=== PATIENT | male | born 1960 | race Caucasian/White ===

== ENCOUNTER 2017-04-17 10:37 | Observation (INO) ==
[2017-04-17] MEDS ORDERED: Aspirin 81 MG TAB.CHEW PO ONE (10:39)
--- NOTE | 2017-04-17 10:43 | Emergency Department Note ---
Disposition Clinical Impression: Chest pain Qualifiers: Chest pain type: unspecified Qualified Code(s): R07.9 - Chest pain, unspecified Disposition: Admitted As Inpatient Condition: Good Referrals: Juan Gilbert DO [Primary Care Provider] - Forms: ED Satisfaction Letter Time of Disposition: 12:05 Chest Pain HPI - General Chief Complaint: ED Chest Pain Stated Complaint: chest pain Time Seen by Provider: 04/17/17 10:38 Source: patient, family Mode of arrival: ambulatory Limitations: no limitations Vital Signs Reviewed: Yes Nursing Notes Reviewed: Yes - History of Present Illness HPI Narrative: 56-year-old male who comes in with crushing substernal chest pain that began 45 minutes prior to arrival. Patient has no history of cardiac pathology. He describes it as a his chest caving in. Patient's risk factors include family history. States he thinks his cholesterol a be high. Patient denies diabetes, hypertension. Pt complaint: chest pain Onset (ago): minute(s) Duration: constant (5) Onset: during rest Pain Location: substernal, left chest Severity: moderate, severe (Initially severe now 2 out of 10) Severity scale (1-10): 2 Quality: tightness, aching, heaviness Pain Radiation: none Improves with: other Worsens with: nothing (Time) Treatments prior to arrival chest pain: none - Related Data Allergies Allergy/AdvReac Type Severity Reaction Status Date / Time methocarbamol [From Robaxin] Allergy Dizziness Verified 01/26/16 10:39 All systems ED: reviewed and negative except as stated. Constitutional: Denies: fever, chills, weakness, weight change Eyes: Denies: eye pain, eye discharge, vision change ENT ED: Denies: ear pain, throat pain, dental pain, hearing loss, epistaxis, congestion, dysphagia Cardiovascular: Reports: chest pain. Denies: palpitations, dyspnea on exertion , edema, syncope Respiratory: Denies: cough, dyspnea, wheezes, hemoptysis, stridor Gastrointestinal: Denies: abdominal pain, nausea, vomiting, diarrhea, constipation, hematemesis, melena, hematochezia Genitourinary: Denies: urgency, dysuria, frequency, hematuria Musculoskeletal: Denies: back pain, neck pain, arthralgia, myalgia Integumentary: Denies: rash, abrasion, lesions Neurological: Denies: headache, weakness, numbness, paresthesias, confusion, abnormal gait, vertigo Psychiatric: Denies: anxiety, depression, suicidal thoughts, homicidal thoughts , auditory hallucinations, visual hallucinations Endocrine: Denies: fatigue Hematological/Lymphatic: Denies: easy bleeding, easy bruising Allergic/Immunologic: Denies: facial swelling, urticaria Chest Pain PMH - Past Medical History Medical history: Reports: no medical history Surgical history: Reports: other (Bilateral mastectomy) Psychiatric history: Reports: no psych history - Social History Smoking Status: Current every day smoker Alcohol use: Reports: occasionally Physical Exam - General Limitations: no limitations General appearance: alert, in no apparent distress - Head Head exam: atraumatic, normocephalic, normal inspection - Eye Eye exam: Present: normal appearance - ENT ENT exam: normal exam, normal oropharynx, mucous membranes moist - Neck Neck exam: Present: normal inspection, full ROM, trachea midline - Chest Chest inspection: Present: normal inspection, symmetric chest wall rise - Respiratory Respiratory exam: Present: normal lung sounds bilaterally - Cardiovascular Cardiovascular exam: Present: regular rate, normal rhythm, normal heart sounds - Abdominal Exam Abdominal exam: Present: soft, Non-Tender. Absent: tenderness, distention, guarding, rebound, rigidity - Extremities Exam Extremities exam: Present: normal inspection, full ROM. Absent: tenderness, pedal edema - Expanded Lower Extremity Exam Neurovascular/Tendon exam: Absent: motor deficit, sensory deficit, tendon deficit Gait: observed and normal - Back Exam Back exam: Present: normal inspection, full ROM. Absent: tenderness - Neurological Exam Neurological exam: Present: alert, oriented X3 - Psychiatric Psychiatric exam: Present: normal affect, normal mood - Skin Skin exam: Present: warm, dry, intact, normal color Course - Reevaluation(s) Reevaluation #1: Repeat EKG done at 10:54 AM no acute changes compared to previous. No acute abnormality Time: 10:58 Reevaluation #2: 56-year-old with risk factors who comes in complaining crushing chest pain lasted for about 2030 minutes. Said no recent cardiac workup. The patient will be admitted for evaluation and treatment. Time: 12:04 - Consultations Consultation #1: Discussed with Dr. Denise, admit Time: 12:04 Vital Signs Temperature 97.8 F 04/17/17 10:39 Pulse Rate 61 04/17/17 10:39 Respiratory Rate 16 04/17/17 10:39 Blood Pressure 143/97 04/17/17 10:39 O2 Sat by Pulse Oximetry 98 04/17/17 10:39 Temperature 97.8 F 04/17/17 10:39 Pulse Rate 61 04/17/17 10:39 Respiratory Rate 16 04/17/17 10:39 Blood Pressure 143/97 04/17/17 10:39 O2 Sat by Pulse Oximetry 98 04/17/17 10:39 Oxygen Delivery Oxygen Delivery Room Air Chest Pain - Lab Data Result diagrams: 04/17/17 11:01 04/17/17 11:01 Lab Results 04/17/17 04/17/17 04/17/17 Range/Units 11:01 11:01 11:01 WBC 7.6 (4.3-11.1) K/mcL RBC 4.76 (4.19-5.50) M/mcL Hgb 16.0 (12.9-16.9) g/dL Hct 45.1 (37.5-50.1) % MCV 94.7 (83.0-100.0) fL MCH 33.6 H (28.0-33.3) pg MCHC 35.5 (31.6-35.5) g/dL RDW 12.1 (11.5-14.5) % Plt Count 193 (140-400) K/mcL MPV 11.6 (9.4-12.4) fL Immature Gran % 0.7 (0-4) % Seg Neutrophils % 60.4 % Lymphocytes % 23.6 % Monocytes % 8.0 % Eosinophils % 6.3 % Basophils % 1.0 % Neutrophils # 4.6 (1.6-8.9) K/mcL Lymphocytes # 1.8 (0.6-4.6) K/mcL Monocytes # 0.6 (0.0-1.3) K/mcL Eosinophils # 0.5 (0.0-0.6) K/mcL Basophils # 0.1 (0.0-0.2) K/mcL PT 10.3 (9.4-12.1) Seconds INR 1.0 APTT 30.7 (26.0-36.0) Seconds Sodium (136-145) mEq/L Potassium (3.5-4.5) mEq/L Chloride (98-109) mEq/L Carbon Dioxide (19-29) mEq/L BUN (8-26) mg/dL Creatinine (0.72-1.25) mg/dL Est GFR ( Amer) (> 60) Est GFR (Non-Af Amer) (> 60) BUN/Creatinine Ratio (6-26) Glucose (70-99) mg/dL Calculated Osmolality (280-300) Calcium (8.6-10.8) mg/dL Troponin I (0-0.03) ng/mL B-Natriuretic Peptide 22 (0-100) pg/mL 04/17/17 04/17/17 Range/Units 11:01 11:01 WBC (4.3-11.1) K/mcL RBC (4.19-5.50) M/mcL Hgb (12.9-16.9) g/dL Hct (37.5-50.1) % MCV (83.0-100.0) fL MCH (28.0-33.3) pg MCHC (31.6-35.5) g/dL RDW (11.5-14.5) % Plt Count (140-400) K/mcL MPV (9.4-12.4) fL Immature Gran % (0-4) % Seg Neutrophils % % Lymphocytes % % Monocytes % % Eosinophils % % Basophils % % Neutrophils # (1.6-8.9) K/mcL Lymphocytes # (0.6-4.6) K/mcL Monocytes # (0.0-1.3) K/mcL Eosinophils # (0.0-0.6) K/mcL Basophils # (0.0-0.2) K/mcL PT (9.4-12.1) Seconds INR APTT (26.0-36.0) Seconds Sodium 140 (136-145) mEq/L Potassium 3.8 (3.5-4.5) mEq/L Chloride 105 (98-109) mEq/L Carbon Dioxide 25 (19-29) mEq/L BUN 11 (8-26) mg/dL Creatinine 1.07 (0.72-1.25) mg/dL Est GFR ( Amer) > 60 (> 60) Est GFR (Non-Af Amer) > 60 (> 60) BUN/Creatinine Ratio 10 (6-26) Glucose 102 H (70-99) mg/dL Calculated Osmolality 290 (280-300) Calcium 9.6 (8.6-10.8) mg/dL Troponin I 0.01 (0-0.03) ng/mL B-Natriuretic Peptide (0-100) pg/mL - EKG Data EKG attestation: Yes I reviewed and interpreted this EKG. EKG shows normal: sinus rhythm Rate: bradycardia Rhythm: NSR [place]/QRS: left axis deviation ST segment elevation in: aVR Interpretation: no acute changes Heart Score - Score History: Highly Suspicious EKG: Non Specific repolarisation Disturbance Age: 45-65 Risk Factors: 1-2 risk factors Troponin: Less than normal limit HEART Score Total: 5
[2017-04-17 11:08] LABS: Basophils # 0.1 K/mcL (0.0-0.2); Eosinophils # 0.5 K/mcL (0.0-0.6); Eosinophils % 6.3 %; Hematocrit 45.1 % (37.5-50.1); Immature Granulocytes % 0.7 % (0-4); Lymphocytes # 1.8 K/mcL (0.6-4.6); Lymphocytes % 23.6 %; Mean Corpuscular HGB Conc 35.5 g/dL (31.6-35.5); Mean Corpuscular Hemoglobin 33.6 pg (28.0-33.3); Mean Corpuscular Volume 94.7 fL (83.0-100.0); Mean Platelet Volume 11.6 fL (9.4-12.4); Monocytes # 0.6 K/mcL (0.0-1.3); Neutrophils # 4.6 K/mcL (1.6-8.9); Platelet Count 193 K/mcL (140-400); Red Blood Count 4.76 M/mcL (4.19-5.50); Red Cell Distribution Width 12.1 % (11.5-14.5); Segmented Neutrophils % 60.4 %
[2017-04-17 11:16] LABS: Prothrombin Time 10.3 Seconds (9.4-12.1)
[2017-04-17 11:18] LABS: Activated Partial Thrombo Time 30.7 Seconds (26.0-36.0)
[2017-04-17 11:24] LABS: BUN/Creatinine Ratio 10 (6-26); Blood Urea Nitrogen 11 mg/dL (8-26); Calcium 9.6 mg/dL (8.6-10.8); Carbon Dioxide 25 mEq/L (19-29); Chloride 105 mEq/L (98-109); Glucose 102 mg/dL (70-99); Osmolality,Calculated 290 (280-300); Potassium 3.8 mEq/L (3.5-4.5); Sodium 140 mEq/L (136-145); eGFR For African Americans > 60 (> 60); eGFR For Non-African Americans > 60 (> 60)
[2017-04-17] MEDS ORDERED: Naloxone 0.4 MG/ML INJ IVP PRN (12:39)
[2017-04-17] MEDS ORDERED: Acetaminophen 325 MG TABLET PO PRN (12:39)
[2017-04-17] MEDS ORDERED: *HR* LORazepam 2 MG/ML VIAL IVP PRN ×3 (12:51)
--- NOTE | 2017-04-17 12:54 | Internal Med History&Physical ---
<Sade Peters M - Last Filed: 04/17/17 12:52> Date of Encounter: 04/17/17 Time of Encounter: 12:52 Assessment and Plan (1) Chest pain Current visit: Yes Status: Acute Patient reports sudden onset of crushing chest pain this morning, accompanied by shortness of breath and diaphoresis. Pain last 20-30 minutes and he is chest pain free now. He has risk factors of smoking history and family history. EKG showed NSR. Troponin negative at 0.01. 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 Qualifiers: Chest pain type: precordial pain Qualified Code(s): R07.2 - Precordial pain (2) Alcohol use Current visit: Yes Status: Acute Patient reports drinking 1-2 shots of bourban plus 2-3 beers daily. [facility] protocol ordered incase of possible withdrawal. (3) Smoker Current visit: Yes Status: Acute Patient reports he previously smoked cigarettes, but quit 1 year ago and now "vapes". Encouraged him to quit vaping as well. Smoking cessation and nicotine patch ordered. (4) DVT prophylaxis Current visit: Yes Status: Acute anti-embolic stockings lovenox SQ daily Internal Medicine - H&P: HPI Chief complaint: chest pain Admitted From: Emergency Dept Plans for Post Hospital Care: Home History of present illness: Mr. Wasserman is a 56 year old male with no significant medical history presented to the emergency department today with complaints of chest pain. Patient reports he had sudden onset of crushing heaviness across his chest this morning, accompanied by some shortness of breath and diaphoresis. Patient reports the pain lasted about 20 minutes to half hour. He took aspirin and was given aspirin in the emergency department. He denies any lightheadedness, headache, palpitations, nausea, vomiting, abdominal pain. He denies any fever or chills. Evaluation in the emergency department included an EKG which shows normal sinus rhythm heart rate of 56, chest x-ray was negative portable study. Troponin was negative at 0.01. BNP was normal at 22. All other labs are grossly normal. Patient has risk factors of smoking history and family history. On exam, patient alert and oriented, in no acute distress. Heart has regular rhythm with mildly bradycardic rate. Lungs are clear bilaterally to auscultation. Abdomen soft, nontender, normal bowel sounds. No peripheral edema, peripheral pulses intact. Past Med Surg Social Fam HX - Past Medical History Medical history: no medical history Psychiatric history: no psych history - Past Surgical History Surgical History: other (Bilateral mastectomy) - Social History Smoking Status: Current every day smoker (20 pack year history) Smokeless Tobacco Status: No Alcohol use: occasionally Drug use: none - Family History Mother Living Status: Still Living Father Living Status: Cause of : alzheimers Hx Family Cardiac Disorders: Yes (CHF) Grandmother Living Status: Hx Family Cardiac Disorders: Yes ([place]) Internal Medicine - H&P: Meds Lipoflavanoid 1 tab PO DAILY 04/17/17 [History] 3 Allergy/AdvReac Type Severity Reaction Status Date / Time methocarbamol [From Robaxin] Allergy Dizziness Verified 01/26/16 10:39 All Systems PM: A 10-system review of systems was performed and is negative for pertinent findings except as documented above in the HPI. - Constitutional Constitutional: no chills, no fever(s), no night sweats - EENT Eyes: no change in vision, no discharge, no pain, no photophobia Ears: no ear discharge, no ear pain, no tinnitus Nose, mouth and throat: no dysphagia, no nasal discharge, no neck pain, no sore throat - Cardiovascular Cardiovascular ROS IM: chest pain, diaphoresis, dyspnea, no lightheadedness, no palpitations, no syncope - Respiratory Respiratory: dyspnea, no cough, no wheezing, no excessive phlegm production - Gastrointestinal Gastrointestinal: no abdominal pain, no diarrhea, no hematemesis, no hematochezia, no melena, no nausea, no vomiting - Musculoskeletal Musculoskeletal ROS IM: no numbness, no tingling - Integumentary Integumentary IM: no rash, no unusual bruising - Neurological Neurological ROS: no confusion, no convulsions, no focal weakness, no numbness, no tingling, no tremor(s) - Hematologic/Lymphatic Hematologic/Lymphatic: no easy bruising - Constitutional Vitals: Temp Pulse Resp BP Pulse Ox 97.8 F 58 16 128/101 98 04/17/17 10:39 04/17/17 12:08 04/17/17 12:08 04/17/17 12:08 04/17/17 12:08 General appearance: Present: A&O X 3, pleasant, no acute distress - Head Head exam: Present: atraumatic, normocephalic - Eye Eye exam: Present: PERRL, conjuntiva pink, sclera anicteric Pupils: Present: PERRL - Neck Neck exam general surgery: Present: supple, trachea midline. Absent: lymphadenopathy - Respiratory Respiratory exam: Present: CTAB. Absent: accessory muscle use, rales, rhonchi, wheezes - Cardiovascular Cardiovascular exam: Present: RRR, +S1, +S2. Absent: diastolic murmur, gallop, rubs, systolic murmur - GI/Abdominal GI/Abdominal exam: Present: normal bowel sounds, soft, no peritoneal signs. Absent: distended, tenderness - Extremities Exam Extremities exam: Present: warm, radial pulses palpable and symmetrical. Absent : calf tenderness, cyanotic, pedal edema - Neurological Exam Neurological exam: Present: CN II-XII intact, oriented X3, no focal deficits. Absent: pronater drift, facial droop, speech deficit - Skin Skin exam: Present: dry, intact Internal Med - H&P Results - Labs CBC & Chem 7: 04/17/17 11:01 04/17/17 11:01 Labs: All Lab Results (24 Hours) 04/17/17 04/17/17 04/17/17 Range/Units 11:01 11:01 11:01 WBC 7.6 (4.3-11.1) K/mcL RBC 4.76 (4.19-5.50) M/mcL Hgb 16.0 (12.9-16.9) g/dL Hct 45.1 (37.5-50.1) % MCV 94.7 (83.0-100.0) fL MCH 33.6 H (28.0-33.3) pg MCHC 35.5 (31.6-35.5) g/dL RDW 12.1 (11.5-14.5) % Plt Count 193 (140-400) K/mcL MPV 11.6 (9.4-12.4) fL Immature Gran % 0.7 (0-4) % Seg Neutrophils % 60.4 % Lymphocytes % 23.6 % Monocytes % 8.0 % Eosinophils % 6.3 % Basophils % 1.0 % Neutrophils # 4.6 (1.6-8.9) K/mcL Lymphocytes # 1.8 (0.6-4.6) K/mcL Monocytes # 0.6 (0.0-1.3) K/mcL Eosinophils # 0.5 (0.0-0.6) K/mcL Basophils # 0.1 (0.0-0.2) K/mcL PT 10.3 (9.4-12.1) Seconds INR 1.0 APTT 30.7 (26.0-36.0) Seconds Sodium (136-145) mEq/L Potassium (3.5-4.5) mEq/L Chloride (98-109) mEq/L Carbon Dioxide (19-29) mEq/L BUN (8-26) mg/dL Creatinine (0.72-1.25) mg/dL Est GFR ( Amer) (> 60) Est GFR (Non-Af Amer) (> 60) BUN/Creatinine Ratio (6-26) Glucose (70-99) mg/dL Calculated Osmolality (280-300) Calcium (8.6-10.8) mg/dL Troponin I (0-0.03) ng/mL B-Natriuretic Peptide 22 (0-100) pg/mL 04/17/17 04/17/17 Range/Units 11:01 11:01 WBC (4.3-11.1) K/mcL RBC (4.19-5.50) M/mcL Hgb (12.9-16.9) g/dL Hct (37.5-50.1) % MCV (83.0-100.0) fL MCH (28.0-33.3) pg MCHC (31.6-35.5) g/dL RDW (11.5-14.5) % Plt Count (140-400) K/mcL MPV (9.4-12.4) fL Immature Gran % (0-4) % Seg Neutrophils % % Lymphocytes % % Monocytes % % Eosinophils % % Basophils % % Neutrophils # (1.6-8.9) K/mcL Lymphocytes # (0.6-4.6) K/mcL Monocytes # (0.0-1.3) K/mcL Eosinophils # (0.0-0.6) K/mcL Basophils # (0.0-0.2) K/mcL PT (9.4-12.1) Seconds INR APTT (26.0-36.0) Seconds Sodium 140 (136-145) mEq/L Potassium 3.8 (3.5-4.5) mEq/L Chloride 105 (98-109) mEq/L Carbon Dioxide 25 (19-29) mEq/L BUN 11 (8-26) mg/dL Creatinine 1.07 (0.72-1.25) mg/dL Est GFR ( Amer) > 60 (> 60) Est GFR (Non-Af Amer) > 60 (> 60) BUN/Creatinine Ratio 10 (6-26) Glucose 102 H (70-99) mg/dL Calculated Osmolality 290 (280-300) Calcium 9.6 (8.6-10.8) mg/dL Troponin I 0.01 (0-0.03) ng/mL B-Natriuretic Peptide (0-100) pg/mL - Diagnostic Studies Chest x-ray Additional comments: Chest X-Ray 04/17/17 10:41 IMPRESSION: Negative portable study. D/ / Alem Saavedra Cha, MD / Alem Saaevdra Cha, MD Interpreting Provider: Alem Saavedra Cha, MD <Yolanda Denise - Last Filed: 04/17/17 14:15> Date of Encounter: 04/17/17 Internal Medicine - H&P: HPI History of present illness: Mr. Wasserman is a 56 year old male All Systems PM: A 10-system review of systems was performed and is negative for pertinent findings except as documented above in the HPI. - Constitutional Vitals: Temp Pulse Resp BP Pulse Ox 97.7 F 52 18 123/84 96 04/17/17 13:28 04/17/17 13:28 04/17/17 13:28 04/17/17 13:28 04/17/17 13:28 Internal Med - H&P Results - Labs CBC & Chem 7: 04/17/17 11:01 04/17/17 11:01 - Attending Attestation I have personally performed a face to face evaluation on this patient. I have reviewed and agree with the care plan. History and Exam by me shows: Patient admitted for chest pain rule out Started to experience chest pain this morning at about 9:30 while sitting watching use on computer. Chest pain severe across the chest, radiating across the chest, crushing in nature. Initially thought it was indigestion and took some omeprazole with no improvement. Since the shortness of breath and clammy sensation. Rate pain 9/10. Better with ASA Dx with MVP in the past Does have a significant cardiac history in the family with multiple members positive for CAD EKG reviewed by self with rate 56 sinus bradycardia does not appear to be symptomatic ROS 14 point review of systems reviewed as best as possible given presentation. Pertinent positive or negative as per HPI or otherwise reviewed as negative General - AAO x 3 Psych - Appropriate affect/speech. No agitation Eyes - CHRIS. Eye lids intact. No scleral icterus Neuro - No gross peripheral or central neuro deficits with intact CN 2-12 exam Heart - Sinus. RRR. S1 and S2 present. No added HS/murmurs appreciated. No elevated JVD appreciated. Lung - Adequate air entry b/l, No crackles/wheezes appreciated GI - Soft, non-tender. No hepatosplenomegaly/ascites. BS+ - No CVA/suprapubic tenderness or palpable bladder distension Skin - Intact. No rash/petechiae/ecchymosis. Warm extremities MSK - Joints with normal ROM. No joint swellings A/P Admit for stress testing. Trend trop, tele overnight Check TSH/FT4 due to non specific complaints of fatigue
[2017-04-17] MEDS ORDERED: Nicotine 2 MG GUM BC PRN (12:59)
[2017-04-18 05:46] LABS: Basophils # 0.1 K/mcL (0.0-0.2); Eosinophils # 0.4 K/mcL (0.0-0.6); Eosinophils % 5.9 %; Hemoglobin 15.1 g/dL (12.9-16.9); Immature Granulocytes % 0.6 % (0-4); Lymphocytes # 1.9 K/mcL (0.6-4.6); Lymphocytes % 26.7 %; Mean Corpuscular HGB Conc 35.1 g/dL (31.6-35.5); Mean Corpuscular Hemoglobin 33.5 pg (28.0-33.3); Mean Corpuscular Volume 95.3 fL (83.0-100.0); Monocytes # 0.6 K/mcL (0.0-1.3); Monocytes % 8.2 %; Neutrophils # 4.1 K/mcL (1.6-8.9); Platelet Count 182 K/mcL (140-400); Red Blood Count 4.51 M/mcL (4.19-5.50); Red Cell Distribution Width 12.3 % (11.5-14.5); Segmented Neutrophils % 57.6 %
[2017-04-18 06:04] LABS: BUN/Creatinine Ratio 9 (6-26); Blood Urea Nitrogen 10 mg/dL (8-26); Calcium 9.2 mg/dL (8.6-10.8); Carbon Dioxide 27 mEq/L (19-29); Chloride 106 mEq/L (98-109); Chol/HDL Ratio 7.8 (0-4.9); Cholesterol 211 mg/dL (< 200); Glucose 102 mg/dL (70-99); HDL Cholesterol 27 mg/dL (40-59); LDL Cholesterol,Calculated 131 mg/dL (0-99); Osmolality,Calculated 287 (280-300); Potassium 3.9 mEq/L (3.5-4.5); Sodium 139 mEq/L (136-145); Triglycerides 265 mg/dL (< 150); eGFR For African Americans > 60 (> 60); eGFR For Non-African Americans > 60 (> 60)
[2017-04-18 06:24] LABS: Thyroid Stimulating Hormone 2.158 mcIU/mL (0.350-4.840)
[2017-04-18] MEDS ORDERED: *HR* Enoxaparin 40 MG/0.4 ML SYRINGE SQ SCH (07:00)
[2017-04-18] MEDS ORDERED: Aspirin 81 MG TAB.CHEW PO SCH (09:00)
--- NOTE | 2017-04-18 10:50 | Nuclear Medicine Stress Report ---
Exercise Nuclear Stress Name: Davi Wasserman Date of Study: 04/18/2017 Date: 1960 Ht: 75.0 in Medical Record#: [id number] Age: 56 Wt: 264.0 lb Gender: Male Order #: [id number] Location: [facility] Room: [facility], [place] Supervising Provider: Heide Panda CNP Reading Physician: Denis Hernandez DO, FACC, [facility] Ordering Physician: Nohelia Aiken CNP Stress Technologist: Carlita Soriano, [employer], [facility] Stitchdown Thread Laster: Jose Brar Indications: Chest Pain Impression: Exercise ECG is negative for ischemia. The exercise capacity was excellent. Normal hemodynamic responses to exercise through stage 3 (162/64). Sudden decrease in BP in stage 4, which is abnormal (142/80). Gated EF > 70%. Small sized, mild intensity, fixed inferior perfusion defect. Wall motion is normal. This is consistent with artifact. Perfusion imaging was negative for ischemia or infarct. History: History of Smoking Stress Test Summary: Stress Test Type: Treadmill Protocol: Abel Baseline Information: Initial Heart Rate: 60 Blood Pressure: 108/58 Stress Information: Stress Time: 9 min 55 sec Test Terminated Due to (primary): Fatigue Maximum Blood Pressure: 142/80 Maximum Heart Rate: 157 Percent Maximum Heart Rate Achieved: 95 Double Product: 53283 METS Reached: 11.8 Symptoms: Fatigue, No chest symptoms Nuclear Summary: SPECT myocardial perfusion imaging using Tc99m Sestamibi given intravenously was performed at rest and following cardiac stress testing. The resting images were obtained following initial dose of 11.6 mCi. Following stress an additional dose of 33.9 mCi was given at peak exercise or 30 seconds post regadenoson infusion. Medication Given: Time Medication Dose Units Route Findings: Stress Note * Resting ECG demonstrated normal sinus rhythm. * No baseline arrhythmias were noted. * Exercise ECG is negative for ischemia. * Occasional PVCs and ventricular couplets noted during stress. * The exercise capacity was excellent. * Patient had no chest pain during stress. * Normal hemodynamic responses to exercise through stage 3 (162/64). Sudden decrease in BP in stage 4, which is abnormal (142/80). Study Quality * Study quality is average. Gated EF > 70% * Gated EF > 70%. Left Ventricle * The left ventricle is not dilated. LVEDV = 96 mL. * Normal wall motion. Inferior Perfusion Rest * The inferior segment shows a mild reduction in perfusion. Inferior Perfusion Stress * The inferolateral segment shows a mild reduction in perfusion. TID * No evidence of transient ischemic dilatation. TID ratio = 0.96. Lung Uptake * There is no evidence of increase lung uptake. Updated by Denis Hernandez DO, CARLOS, ERIBERTO, ELIZABETH on 04/18/2017 10:41:49 AM electronically signed on 04/18/2017 10:43:17 AM with status of Final
[2017-04-18 11:55] VITALS: BP 118/80
--- NOTE | 2017-04-18 13:40 | Electrocardiograph Report ---
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
--- NOTE | 2017-04-18 14:47 | Discharge Summary ---
Date of Encounter: 04/18/17 Time of Encounter: 14:46 - Discharge Diagnosis (1) Chest pain Priority: Primary Status: Acute Comments: Davi Wasserman is a 56 y/o male with significant past medical history who presented to [facility] on 04/17/2017 with points of chest pain. ACS was ruled out with a negative stress test. He was discharged home in stable condition. 1. Chest pain: presented with chest pain that started morning of presentation. Patient took aspirin when chest pain started, chest pain resolved prior to arrival. Serial troponins negative, EKG without acute ST changes. TTE with normal EF, no valvular abnormalities, no wall motion abnormalities. Exercise nuclear stress test negative for ischemia but did show a drop in blood pressure in stage IV (BP 162/64 in stage 3 and dropped to 142/80 in stage 4). No chest pain recurrence following patient. ACS ruled out. Continue ASA. Will set up appointment with cardiology prior to discharge for further evaluation of stress test. 2. Hyperlipidemia: LDL 131; patient declining statin. Once the [employer] start modifications. Recommend repeat lipid panel in 3 months with PCP. Qualifiers: Chest pain type: precordial pain Qualified Code(s): R07.2 - Precordial pain (2) Hyperlipidemia Priority: Primary Status: Acute Qualifiers: Hyperlipidemia type: pure hypercholesterolemia Qualified Code(s): E78.00 - Pure hypercholesterolemia, unspecified; E78.0 - Pure hypercholesterolemia - Discharge Medications Prescriptions: Aspirin 81 mg PO DAILY #30 tab.chew Home Medications: Lipoflavanoid 1 tab PO DAILY 04/17/17 [History] Aspirin 81 mg PO DAILY #30 tab.chew 04/18/17 [Rx] Allergies/Adverse Reactions: 3 Allergy/AdvReac Type Severity Reaction Status Date / Time methocarbamol [From Robaxin] Allergy Dizziness Verified 01/26/16 10:39 Procedures/tests Complete & Pending: Procedures Performed prior 72 hours Category Date Time Status NM skinny perf SPECT multi [NM] Routine Exams 04/17/17 12:51 Taken EV echocardiogram Routine Y 04/18/17 12:50 Completed SP exercise nuclear stress Routine Y 04/18/17 07:10 Completed Date of admission: 04/17/17 12:12 Primary care physician: Juan Gilbert, DO Discharging clinician: Nohelia Aiken Anticipated date of discharge: 04/18/17 - Patient Status Disposition: Home, Self-Care Functional capacity at discharge: independent ambulation Overall status at discharge: patient is back to baseline - Discharge Instructions Follow Up With: Juan Gilbert DO [Primary Care Provider] - Abel Villatoro MD [Partnered Physician] - Additional Instructions: Please make an appointment with your primary care doctor within 1 week of discharge. - Diet and Activity Activity: resume usual activities as tolerated Diet: low fat, low cholesterol Interval History: Seen and examned at bedside, patient is new to me. Information obtained from chart review and patient report. He just returned from a stress test. Says he feels better but discharged today. No chest pain no shortness of breath. Hospital course: See assessment and plan for hospital course - Time Spent with Patient Total time spent providing and/or coordinating discharge services: - Constitutional Vitals: Temp Pulse Resp BP Pulse Ox 98.2 F 58 16 118/80 97 04/18/17 11:54 04/18/17 11:54 04/18/17 11:54 04/18/17 11:54 04/18/17 11:54 General appearance: Present: A&O X 3, pleasant, no acute distress - Head Head exam: Present: atraumatic, normocephalic - Eye Eye exam: Present: PERRL, conjuntiva pink, sclera anicteric Pupils: Present: PERRL - Neck Neck exam general surgery: Present: supple, trachea midline. Absent: lymphadenopathy - Respiratory Respiratory exam: Present: CTAB. Absent: accessory muscle use, rales, rhonchi, wheezes - Cardiovascular Cardiovascular exam: Present: RRR, +S1, +S2. Absent: diastolic murmur, gallop, rubs, systolic murmur - GI/Abdominal GI/Abdominal exam: Present: normal bowel sounds, soft, no peritoneal signs. Absent: distended, tenderness - Extremities Exam Extremities exam: Present: warm, radial pulses palpable and symmetrical. Absent : calf tenderness, cyanotic, pedal edema - Neurological Exam Neurological exam: Present: CN II-XII intact, oriented X3, no focal deficits. Absent: pronater drift, facial droop, speech deficit - Skin Skin exam: Present: dry, intact
== END 2017-04-18 17:07 | disposition home or self-care (01) ==
LOC: EMEROO 10:37 → 3BNU 10:37
PROVIDERS: ADMIT Internal Medicine Hematology & Oncology; ATTEND Registered Nurse